=== PATIENT | male | born 1970 | race African-American/Black ===

== ENCOUNTER → 2018-09-16 | Emergency (ER) | payer OTHER ==
[~2018-09-16] MED LIST: HYDROCHLOROTHIA25 MG PO; INTESTINEX1 CA1 PO; KETO10TA2 PO; TRENTAL; VASOTEC20 MG PO
== END | disposition left against medical advice (07) ==
LOC: ER 07:56
DX: Z53.20 Procedure and treatment not carried out because of patient's decision for unspecified reasons (principal)

== ENCOUNTER 2021-10-12 10:53 | Outpatient (CLI) | payer OTHER | END 2021-10-12 10:54 | disposition home or self-care (01) | LOC: LAB 10:53 | PROVIDERS: ATTEND Surgery | DX: N52.9 Male erectile dysfunction, unspecified (principal) ==

== ENCOUNTER → 2021-10-15 08:00 | Outpatient (CLI) | payer OTHER ==
[~2021-10-15] VITALS: Ht 180.3 cm; Wt 98.9 kg
[~2021-10-15 08:00] MED LIST changes: +COZAAR100 MG PO
== END | disposition home or self-care (01) ==
LOC: LAB 08:00 → ADM 11:00 → CIR.AMB 10-20 11:00 → EDSTATUS 10-20 11:00 → CIR.AMB 10-20 13:15
PROVIDERS: ATTEND Surgery
DX: N52.9 Male erectile dysfunction, unspecified (principal); N48.6 Induration penis plastica